=== PATIENT | female | born 1985 | race Caucasian/White ===

== ENCOUNTER → 2017-01-08 | Outpatient (CLI) | payer BC | END | disposition home or self-care (01) | LOC: RAD.S 13:00 | DX: Z30.431 Encounter for routine checking of intrauterine contraceptive device (principal); Z53.9 Procedure and treatment not carried out, unspecified reason ==

== ENCOUNTER → 2017-02-16 | Outpatient (CLI) | payer BC | END | disposition home or self-care (01) | LOC: RAD.S 02-12 16:38 | DX: R10.9 Unspecified abdominal pain (principal) ==